=== PATIENT | female | born 1950 | race Caucasian/White ===

== ENCOUNTER 2016-08-02 12:40 | Emergency (ER) | payer MEDICARE, MEDICAID ==
[~2016-08-02] VITALS: Ht 160 cm; Wt 70.5 kg
[2016-08-02 12:57] VITALS: BP 170/86; PULSE 73; RESP 18; TEMP 97.5; O2SAT 98
[2016-08-02 13:12] VITALS: O2SAT 98
[2016-08-02] MEDS ORDERED: NORV2.5T PO (13:17)
[2016-08-02] MEDS ORDERED: PROT40TA PO (13:17)
[2016-08-02] MEDS ORDERED: ASPI1TAB69 PO (13:17)
[2016-08-02] MEDS ORDERED: FISHCAP4 PO (13:17)
[2016-08-02] MEDS ORDERED: CARV3.125 PO (13:17)
[2016-08-02] MEDS ORDERED: BACL10TA PO (13:17)
[2016-08-02] MEDS ORDERED: XANA1TAB2 PO (13:17)
[2016-08-02] MEDS ORDERED: LISI-515 PO (13:17)
--- NOTE | 2016-08-02 13:26 | PD ---
HPI Chief Complaint: Dizziness Time Seen by Provider: 12:51 Travel History International Travel<30 days: No Contact w/Intl Traveler<30days: No Traveled to known affect area: No History of Present Illness HPI This is a 66-year-old female who presents to the emergency department with dizziness that started this morning when she was visiting her sister, described as feeling like she is unsteady, constant, moderate severity, associated with nausea. She says it lasted for several hours. She has slight discomfort in her chest lasted for several seconds and then subsided. She denies any numbness or weakness. She is a history of a stroke in the past and has residual left-sided hand numbness and left facial numbness. She takes a baby aspirin every day. She is followed in [place] at [facility]. She says the symptoms feel very similar to when she had her stroke last year. Currently her symptoms have improved additionally has a little bit of nausea. PFSH Past Medical History Anxiety: Yes GERD: Yes Hypertension: Yes Influenza Vaccination: Yes Past Surgical History Abdominal Surgery: Yes (BENIGN DUODENAL ULCER) Gynecologic Surgery: Yes (FIBROIDS) Other Surgery: Yes (INGUINAL HERNIA) Social History Alcohol Use: No Tobacco Use: No Substance Use: No Allergies-Medications (Allergen,Severity, Reaction): Coded Allergies: Singulair (Verified Allergy, Severe, TONGUE SWELLING, 08/02/16) Adhesives (Verified Allergy, Mild, ERYTHEMA, 08/02/16) Morphine (Verified Allergy, Mild, RASH, 08/02/16) Bactrim (Verified Allergy, Unknown, 08/02/16) Cleocin (Verified Allergy, Unknown, 08/02/16) Darvocet-N 100 (Verified Allergy, Unknown, 08/02/16) Demerol (Verified Allergy, Unknown, 08/02/16) Keflex (Verified Allergy, Unknown, 08/02/16) Neosporin (Verified Allergy, Unknown, 08/02/16) Zithromax (Verified Allergy, Unknown, 08/02/16) Solu-Medrol (Verified Adverse Reaction, Unknown, TACHYCARDIA, 08/02/16) Reported Meds & Prescriptions Reported Meds & Active Scripts Active Reported Baclofen 10 Mg Tab 10 Mg PO Q8HR PRN Fish Oil + D3 (Fish Oil-Cholecalciferol) 1,200-1,000 Mg-Unit Cap 1 Cap PO DAILY Aspirin 81 Mg Tabdr 81 Mg PO BID Xanax (Alprazolam) 1 Mg Tab 1 Mg PO BID PRN Protonix (Pantoprazole Sodium) 40 Mg Tab 40 Mg PO DAILY Coreg (Carvedilol) 3.125 Mg Tab 3.125 Mg PO BID Norvasc (Amlodipine Besylate) 2.5 Mg Tab 2.5 Mg PO DAILY Lisinopril 20 Mg Tab 20 Mg PO DAILY Review of Systems Except as stated in HPI: all other systems reviewed are Neg Physical Exam Narrative GENERAL:Well appearing, no acute distress SKIN: Warm and dry. HEAD: Atraumatic. Normocephalic. EYES: Pupils equal and round. No injection or drainage. ENT: Moist mucous membranes NECK: Trachea midline. CARDIOVASCULAR: Regular rate and rhythm. No murmur appreciated. RESPIRATORY: Clear to auscultation. Breath sounds equal bilaterally. GASTROINTESTINAL: Abdomen soft, non-tender, nondistended. MUSCULOSKELETAL: No obvious deformities. NEUROLOGICAL: Awake and alert. No obvious cranial nerve deficits. No dysarthria or aphasia. No upper or lower extremity drift. No upper extremity ataxia. PSYCHIATRIC: Appropriate mood and affect; insight and judgment normal. Data Data Last Documented VS Vital Signs Date Time Temp Pulse Resp B/P Pulse Ox O2 Delivery O2 Flow Rate FiO2 08/02/16 13:12 98 Room Air 08/02/16 12:57 97.5 73 18 170/86 Orders Electrocardiogram (08/02/16 13:06) Prothrombin Time / Inr (Pt) (08/02/16 13:06) Act Partial Throm Time (Ptt) (08/02/16 13:06) Complete Blood Count With Diff (08/02/16 13:06) Comprehensive Metabolic Panel (08/02/16 13:06) Troponin I (08/02/16 13:06) Urinalysis - C+S If Indicated (08/02/16 13:06) Ct Brain W/O Iv Contrast(Rout) (08/02/16 13:06) Ecg Monitoring (08/02/16 13:06) Iv Access Insert/Monitor (08/02/16 13:06) Oximetry (08/02/16 13:06) Labs Laboratory Tests Test 08/02/16 08/02/16 13:30 13:51 Urine Collection Type CATH Urine Color YELLOW Urine Turbidity CLEAR Urine pH 6.5 Urine Specific [place] 1.006 Urine Protein NEG mg/dL Urine Glucose (UA) NEG mg/dL Urine Ketones NEG mg/dL Urine Occult Blood TRACE Urine Nitrite NEG Urine Bilirubin NEG Urine Leukocyte Esterase NEG Urine RBC 0-3 /hpf Urine Squamous Epithelial 0-5 /hpf Cells Microscopic Urinalysis Comment CULT NOT INDICATED Urine Collection Time 13:30 White Blood Count 5.3 TH/MM3 Red Blood Count 4.52 MIL/MM3 Hemoglobin 12.0 GM/DL Hematocrit 36.1 % Mean Corpuscular Volume 79.9 FL Mean Corpuscular Hemoglobin 26.5 PG Mean Corpuscular Hemoglobin 33.2 % Concent Red Cell Distribution Width 13.0 % Platelet Count 248 TH/MM3 Mean Platelet Volume 7.5 FL Neutrophils (%) (Auto) 59.5 % Lymphocytes (%) (Auto) 31.6 % Monocytes (%) (Auto) 6.5 % Eosinophils (%) (Auto) 1.9 % Basophils (%) (Auto) 0.5 % Neutrophils # (Auto) 3.2 TH/MM3 Lymphocytes # (Auto) 1.7 TH/MM3 Monocytes # (Auto) 0.3 TH/MM3 Eosinophils # (Auto) 0.1 TH/MM3 Basophils # (Auto) 0.0 TH/MM3 CBC Comment DIFF FINAL Differential Comment Prothrombin Time 10.3 SEC Prothromb Time International 0.9 RATIO Ratio Activated Partial 28.3 SEC Thromboplast Time Sodium Level 138 MEQ/L Potassium Level 3.8 MEQ/L Chloride Level 100 MEQ/L Carbon Dioxide Level 28.4 MEQ/L Anion Gap 10 MEQ/L Blood Urea Nitrogen 13 MG/DL Creatinine 0.92 MG/DL Estimat Glomerular Filtration 61 ML/MIN Rate Random Glucose 128 MG/DL Calcium Level 8.6 MG/DL Total Bilirubin 0.3 MG/DL Aspartate Amino Transf 21 U/L (AST/SGOT) Alanine Aminotransferase 40 U/L (ALT/SGPT) Alkaline Phosphatase 105 U/L Troponin I LESS THAN 0.02 NG/ML Total Protein 7.6 GM/DL Albumin 3.7 GM/DL [facility] Medical Decision Making Medical Screen Exam Complete: Yes Emergency Medical Condition: Yes Interpretation(s) Afebrile, no tachycardia, hypertensive No leukocytosis Electrolytes are reassuring Troponin is normal Urinalysis is negative for infection Last [address] 08/02/16 1306 Signed Impressions: Service Date/Time: Tuesday, August 02, 2016 13:14 - CONCLUSION: Normal examination. David Castellanos MD Differential Diagnosis Stroke, TIA, vertigo, anxiety, urinary tract infection, electrolyte abnormality Narrative Course This is a 66-year-old female who presents to the emergency department with dizziness that she thought might be a stroke. She was placed in a monitor and an IV was established. She has a normal neurologic exam. I obtained outside hospital records and the patient had a normal carotid artery ultrasound on December 282015. In the setting of similar symptoms she has had 2 normal MRIs without evidence of stroke the most recent being in June. She's had a normal echocardiogram with an ejection fraction of 70%. I don't think the patient requires additional workup for stroke or TIA as she has no neurologic deficit on exam and she's had a thorough workup previously. Patient's labs and CT are all reassuring. She was given clonidine for her low pressure. Suspect her symptoms may be secondary to hypertension. She is advised to follow-up with her primary care physician as an outpatient. Diagnosis Primary Impression: Dizziness Patient Instructions: General Instructions Additional Instructions: If you develop severe chest pain, shortness of breath, sweating, lightheadedness , dizziness or difficulty breathing return to the emergency department immediately. Followup with your primary care physician in 2-3 days if your symptoms are not resolved. Med/Other Pt SpecificInfo: Prescription(s) given Scripts Ondansetron Odt (Zofran Odt)4 Mg Tab4 Mg SL Q6HR PRN (Nausea/Vomiting) #15 TAB Prov:Elizabeth aBh MD 08/02/16 Disposition: 01 DISCHARGE HOME Condition: Stable Elizabeth Bah MD Aug 02, 2016 13:26
--- NOTE | 2016-08-02 13:29 | RADHPO ---
EXAM DATE/TIME: 08/02/2016 13:14 [place] COMPARISON: No previous studies available for comparison. INDICATIONS : Dizziness and nausea. RADIATION DOSE: 56.77 CTDIvol (mGy) MEDICAL HISTORY : None SURGICAL HISTORY : None. ENCOUNTER: Initial ACUITY: 1 day PAIN SCALE: 0/10 LOCATION: cranial TECHNIQUE: Multiple contiguous axial images were obtained of the head. Using automated exposure control and adj ustment of the mA and/or kV according to patient size, radiation dose was kept as low as reasonably a chievable to obtain optimal diagnostic quality images. FINDINGS: CEREBRUM: The ventricles are normal for age. No evidence of midline shift, mass lesion, hemorrhage or acute in farction. No extra-axial fluid collections are seen. POSTERIOR FOSSA: The cerebellum and brainstem are intact. The 4th ventricle is midline. The cerebellopontine angle i s unremarkable. EXTRACRANIAL: The visualized portion of the orbits is intact. SKULL: The calvaria is intact. No evidence of skull fracture. CONCLUSION: Normal examination. David Castellanos MD on August 02, 2016 at 13:27 Board Certified Radiologist. This report was verified electronically.
[2016-08-02 13:52] LABS: BLOOD, URINE TRACE (NEG); GLUCOSE,URINE NEG (NEG); KETONE, URINE NEG (NEG); NITRITE,URINE NEG (NEG); PH, URINE 6.5 (5.0-8.5)
[2016-08-02 13:59] LABS: COMMENT (UR) CULT NOT INDICATED; CULTURE IF INDICATED CULT NOT INDICATED; METHOD OF COLLECTION CATH; RBC, URINE 0-3 /hpf (0-3); SQUAMOUS EPITHELIAL CELL URINE 0-5 /hpf (0-5); URINE COLOR YELLOW (YELLW/STRAW)
[2016-08-02 14:00] LABS: AUTOMATED NEUTROPHIL # 3.2 TH/MM3 (1.8-7.7); BASOPHIL % 0.5 % (0.0-2.0); EOSINOPHIL # 0.1 TH/MM3 (0-0.4); EOSINOPHIL % 1.9 % (0.0-4.0); HEMATOCRIT 36.1 % (35.0-46.0); HEMO FLAGS DIFF FINAL; LYMPH % 31.6 % (9.0-44.0); LYMPHOCYTE # 1.7 TH/MM3 (1.0-4.8); MEAN CELL VOLUME 79.9 FL (80.0-100.0); MEAN CORPUSCULAR HEMOGLOBIN 26.5 PG (27.0-34.0); MEAN CORPUSCULAR HGB CONC 33.2 % (32.0-36.0); MONO % 6.5 % (0.0-8.0); NEUT % 59.5 % (16.0-70.0); PLATELET COUNT 248 TH/MM3 (150-450); RED BLOOD COUNT 4.52 MIL/MM3 (4.00-5.30); WHITE BLOOD COUNT 5.3 TH/MM3 (4.0-11.0)
[2016-08-02 14:05] LABS: CHLORIDE 100 MEQ/L (98-107); POTASSIUM 3.8 MEQ/L (3.5-5.1); SODIUM (NA) 138 MEQ/L (136-145)
[2016-08-02 14:09] LABS: ANION GAP 10 MEQ/L (5-15); BICARBONATE 28.4 MEQ/L (21.0-32.0)
[2016-08-02 14:10] LABS: APTT (PATIENT) 28.3 SEC (24.3-30.1); BLOOD UREA NITROGEN 13 MG/DL (7-18); INTERNATIONAL NORMALIZED RATIO 0.9 RATIO; PROTHROMBIN TIME - PATIENT 10.3 SEC (9.8-11.6)
[2016-08-02 14:13] LABS: ALT (GPT) 40 U/L (10-53); AST (GOT) 21 U/L (15-37); GLOMERULAR FILTRATION RATE 61 ML/MIN (>89)
[2016-08-02 14:14] LABS: TOTAL BILIRUBIN ADULT 0.3 MG/DL (0.2-1.0)
[2016-08-02 14:15] LABS: ALKALINE PHOSPHATASE 105 U/L (45-117)
[2016-08-02] MEDS ORDERED: ZOFR4TAB3 SL (15:09)
[2016-08-02] MEDS ORDERED: cloNIDine HCL 0.1 MG TAB PO ONE (15:15)
[2016-08-02] MEDS ORDERED: ONDANSETRON HCL 4 MG/2 ML VIAL IV ONE (15:15)
[2016-08-02 15:17] VITALS: BP 181/84; PULSE 69; RESP 18; O2SAT 98
[2016-08-02 15:41] VITALS: BP 143/78; PULSE 78; RESP 18; O2SAT 98
--- NOTE | 2016-08-04 00:02 | EKG ---
Date Performed: 08/02/2016 Time Performed: 13:09:04 PTAGE: 66 years EKG: Sinus rhythm Leftward axis Extensive T wave changes are nonspecific Borderline ECG NO PREVIOUS TRACING DOCTOR: Campbell Silva Interpretating Date/Time 08/04/2016 00:01:18
== END 2016-08-02 15:43 | disposition home or self-care (01) ==
LOC: PHED 12:40
DX: R42 Dizziness and giddiness (principal); R11.0 Nausea; R94.31 Abnormal electrocardiogram [ECG] [EKG]; I10 Essential (primary) hypertension; Z79.82 Long term (current) use of aspirin; Z86.79 Personal history of other diseases of the circulatory system; Z86.69 Personal history of other diseases of the nervous system and sense organs; Z86.59 Personal history of other mental and behavioral disorders; Z87.19 Personal history of other diseases of the digestive system
CPT/HCPCS: 70450; 80053; 81001; 84484; 85025; 85610; 85730; 93005; 96374; 99284; J2405